=== PATIENT | female | born 1980 | race Caucasian/White ===

== ENCOUNTER 2020-05-08 03:31 | Emergency (ER) | payer OTHER ==
--- NOTE | 2020-05-08 03:53 | EDM.PDOC ---
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 Before she could catch that and ended up falling on top of her causing a crush injury to left hand. The patient has pain in the left hand it is worse with movement and touching it and it is associated with numbness in the digits. The pain sharp and moderately severe Review of systems: As per history of present illness and below otherwise all systems reviewed and negative. Past medical history: As per history of present illness and as reviewed below otherwise noncontributory. Surgical history: As per history of present illness and as reviewed below otherwise noncontributory. Social history: No reported history of drug or alcohol abuse. Family history: As per history of present illness and as reviewed below otherwise noncontributory. Physical exam: Constitutional - well developed, well-nourished and in no acute distress HEENT - normocephalic, no evidence of trauma - external nose and mouth normal - no mass in neck and no JVD - mucosae moist EYES - full EOM, PERRL, no icterus - no evidence of inflammation, injection, or drainage Respiratory - no respiratory distress, equal bilateral expansion Musculoskeletal tenderness of the dorsum of the left hand at the base of the third fourth and fifth metacarpals. Abrasion in the same area. No gross deformity of long bones or joints - no tenderness, swelling or edema Neurologic - Alert and oriented times four - CN II-XII grossly intact - motor sensory and coordination symmetrically normal Psychiatric - appropriate mood and affect with normal thought content Hematologic - No petechiae or purpura - mucosa appropriate color and sclera not pale - normal nail bed color and refill Integument - no rash or evidence of trauma - normal turgor Diagnostics: [] Therapeutics: [] Impression: [] Plan: [] Definitive disposition and diagnosis as appropriate pending reevaluation and review of above. L hand Pain Score (Numeric/FACES): 7 - Related Data Allergies Allergy/AdvReac Type Severity Reaction Status Date / Time No Known Allergies Allergy Verified 05/08/20 04:00 Home Meds: Home Meds Levothyroxine [Synthroid] 0 mcg PO DAILY 04/28/14 [History] Past Medical History - Past Health History Medical/Surgical History: Denies Medical/Surgical History HEENT History: Reports: None Gastrointestinal History: Reports: None Genitourinary History: Reports: None Neurological History: Reports: Other (See Below) Other Neuro History: buldging discs Psychiatric History: Reports: Depression Endocrine/Metabolic History: Reports: Hypothyroidism - Past Surgical History HEENT Surgical History: Reports: Tonsillectomy Female Surgical History: Reports: Tubal Ligation Endocrine Surgical History: Reports: Other (See Below) Other Endocrine Surgeries/Procedures: Multiple thyroid procedures Neurological Surgical History: Reports: Lumbar Spine Other Neurological Surgeries/Procedures: Surgery at L3-4. Microdiscectomy at L4-5 06/29/17 Social & Family History - Family History Family Medical History: Noncontributory ED ROS GENERAL - Review of Systems Review Of Systems: Comprehensive ROS is negative, except as noted in HPI. ED EXAM, GENERAL - Physical Exam Exam: See Below Free Text/Narrative:: Physical exam as in the HPI Course - Vital Signs Text/Narrative:: Previous negative for fracture. Compartment warnings given. Patient discharged in satisfactory condition after neurovascular integrity was verified after splint placement Last Recorded V/S: Last Vital Signs Temp 96.9 F 05/08/20 03:44 Pulse 100 05/08/20 03:44 Resp 17 05/08/20 03:44 BP 131/89 05/08/20 03:44 Pulse Ox 100 05/08/20 03:44 - Orders/Labs/Meds Orders: Active Orders 24 hr Category Date Time Status Splinting [RC] ASDIRECTED Care 05/08/20 04:18 Ordered Hand Comp Min 3V Lt [CR] Stat Exams 05/08/20 03:52 Taken Departure - Departure Time of Disposition: 04:19 Disposition: Home, Self-Care 01 Condition: Good Clinical Impression: Contusion of hand, left - Discharge Information Instructions: Hand Contusion Referrals: Kirit Frye MD [Primary Care Provider] - Additional Instructions: The following information is given to patients seen in the emergency department who are being discharged to home. This information is to outline your options for follow-up care. We provide all patients seen in our emergency department with a follow-up referral. The need for follow-up, as well as the timing and circumstances, are variable depending upon the specifics of your emergency department visit. If you don't have a primary care physician on staff, we will provide you with a referral. We always advise you to contact your personal physician following an emergency department visit to inform them of the circumstance of the visit and for follow-up with them and/or the need for any referrals to a consulting specialist. The emergency department will also refer you to a specialist when appropriate. This referral assures that you have the opportunity for follow-up care with a specialist. All of these measure are taken in an effort to provide you with optimal care, which includes your follow-up. Under all circumstances we always encourage you to contact your private physician who remains a resource for coordinating your care. When calling for follow-up care, please make the office aware that this follow-up is from your recent emergency room visit. If for any reason you are refused follow-up, please contact the [facility] Emergency Department at and asked to speak to the emergency department charge nurse. [facility] [address], [address] [place] [address] Sepsis Event Note (ED) - Focused Exam Vital Signs: Vital Signs Temp Pulse Resp BP Pulse Ox 05/08/20 03:44 96.9 F 100 17 131/89 100 - My Orders Last 24 Hours: My Active Orders 05/08/20 03:52 Hand Comp Min 3V Lt [CR] Stat 05/08/20 04:18 Splinting [RC] ASDIRECTED - Assessment/Plan Last 24 Hours: My Active Orders 05/08/20 03:52 Hand Comp Min 3V Lt [CR] Stat 05/08/20 04:18 Splinting [RC] ASDIRECTED
[2020-05-08 04:00] VITALS: BP 131/89; PULSE 100
--- NOTE | 2020-05-08 04:54 | CR ---
Indication: Pain after trauma Technique: Three views Comparison: None Findings: Bones: Alignment is normal. No fractures or bone lesions. Joint spaces: Unremarkable. Soft tissues: Unremarkable. Dictated by Renzo Das MD @ May 08 2020 4:50AM Signed by Dr. Renzo Das @ May 08 2020 4:53AM
== END 2020-05-08 04:36 | disposition home or self-care (01) ==
LOC: MW.ED 03:31
DX: S60.222A Contusion of left hand, initial encounter (principal); E03.9 Hypothyroidism, unspecified; Z79.899 Other long term (current) drug therapy; W20.8XXA Other cause of strike by thrown, projected or falling object, initial encounter
CPT/HCPCS: 73130-26-LT; 73130-LT; 99282; 99283

== ENCOUNTER 2022-03-14 05:45 | Emergency (ER) | payer OTHER ==
[2022-03-14 07:12] LABS: BLOOD UREA NITROGEN,BUN 12 mg/dL (7.0-18.0); CARBON DIOXIDE,CO2 28.7 mmol/L (21.0-32.0); CHLORIDE,CL 103 mmol/L (98-107); GLUCOSE RANDOM 84 mg/dL (74-106); POTASSIUM,K 3.9 mmol/L (3.5-5.1); SODIUM,NA 137 mmol/L (136-145)
[2022-03-14 07:28] VITALS: BP 128/74; PULSE 88
== END 2022-03-14 07:33 | disposition home or self-care (01) ==
LOC: MW.ED 05:45
DX: E89.0 Postprocedural hypothyroidism (principal); Z79.899 Other long term (current) drug therapy
CPT/HCPCS: 36415; 80053; 83735; 84439; 84443; 84481; 84484; 84703; 85025; 93005; 99284-25

== ENCOUNTER 2023-04-06 00:38 | Emergency (ER) | payer OTHER ==
[2023-04-06] MEDS ORDERED: Ketorolac 30 MG/ML SDV IVPUSH ONE (01:38)
[2023-04-06] MEDS ORDERED: diphenhydrAMINE 50 MG/ML SDV IVPUSH ONE (01:38)
[2023-04-06] MEDS ORDERED: Acetaminophen 325 MG Tab PO ONE (01:38)
[2023-04-06] MEDS ORDERED: Lactated Ringers 1,000 ML IV SCH (01:45)
[2023-04-06 02:10] LABS: BASOPHILS PERCENT AUTO 0.2 % (0.0-1.5); EOSINOPHILS PERCENT AUTO 0.3 % (0.0-7.0); HEMATOCRIT 33.4 % (36.0-46.0); HEMOGLOBIN 10.6 g/dL (12.0-16.0); LYMPHOCYTES ABSOLUTE AUTO 0.4 K/uL (0.6-2.4); LYMPHOCYTES PERCENT AUTO 6.4 % (16.0-40.0); MEAN CORPUSCULAR HEMOGLOBIN 25.4 pg (27.0-32.0); MEAN CORPUSCULAR HGB CONC 31.7 g/dL (31.0-37.0); MEAN CORPUSCULAR VOLUME 79.9 fL (80.0-98.0); MONOCYTES ABSOLUTE AUTO 0.3 K/uL (0.0-0.8); MONOCYTES PERCENT AUTO 4.6 % (0.0-15.0); NEUTROPHILS ABSOLUTE AUTO 5.4 K/uL (1.4-5.7); NEUTROPHILS PERCENT AUTO 88.5 % (48.0-80.0); NRBC ABSOLUTE 0 K/uL; PLATELET COUNT,PLT 126 K/uL (150-400); RED BLOOD CELL COUNT 4.18 M/uL (4.30-5.90); WHITE BLOOD CELL COUNT,WBC 6.08 K/uL (4.0-11.0)
[2023-04-06 02:33] LABS: CREATININE 0.8 mg/dL (0.6-1.0); POTASSIUM,K 4.1 mmol/L (3.5-5.1)
[2023-04-06 02:34] LABS: ALBUMIN 3.2 g/dL (3.4-5.0); BILIRUBIN TOTAL 0.5 mg/dL (0.2-1.0); CALCIUM 9.1 mg/dL (8.5-10.1); EST CRCL DRUG DOSING (CG) 80.75 mL/min; PROTEIN TOTAL,TP 6.5 g/dL (6.4-8.2)
[2023-04-06 02:41] LABS: BILIRUBIN,URINE NEGATIVE (NEGATIVE); COLOR,URINE YELLOW; GLUCOSE,URINE NEGATIVE (NEGATIVE); KETONES,URINE NEGATIVE (NEGATIVE); LEUKOCYTE ESTERASE,URINE NEGATIVE (NEGATIVE); NITRITE,URINE POSITIVE (NEGATIVE); OCCULT BLOOD,URINE NEGATIVE (NEGATIVE); PROTEIN,URINE NEGATIVE (NEGATIVE); UROBILINOGEN,URINE 0.2 EU/dL (<2.0)
[2023-04-06 02:52] LABS: APPEARANCE,URINE HAZY
[2023-04-06 02:58] LABS: EPITHELIAL CELLS,URINE FEW (NONE-FEW); RBC,URINE 0-2 (0-2/HPF); WBC,URINE 0-2 (0-5/HPF)
[2023-04-06 02:59] LABS: BACTERIA,URINE 4+ (NEGATIVE); MUCUS,URINE LIGHT (NONE-MOD)
[2023-04-06] MEDS ORDERED: cefTRIAXone 1 GM in Sodium Chloride 0.9% 50 ML IV ONE (03:13)
[2023-04-06 04:42] VITALS: BP 115/73; PULSE 107
== END 2023-04-06 04:42 | disposition home or self-care (01) ==
LOC: MW.ED 00:38
DX: N12 Tubulo-interstitial nephritis, not specified as acute or chronic (principal); E03.9 Hypothyroidism, unspecified; Z79.899 Other long term (current) drug therapy; Z20.822 Contact with and (suspected) exposure to COVID-19
CPT/HCPCS: 36415; 71046; 80053; 81001; 83690; 85025; 86308; 87040; 87086; 87088; 87186; 87635; 96361; 96365; 96375; 99284; A9270; J0696; J1200; J1885; J3490; J7120; U0002

== ENCOUNTER 2023-08-18 20:11 | Emergency (ER) | payer OTHER ==
[2023-08-18 20:55] LABS: BASOPHILS ABSOLUTE AUTO 0.05 K/uL (0.00-0.20); EOSINOPHILS ABSOLUTE AUTO 0.18 K/uL (0.00-0.45); EOSINOPHILS PERCENT AUTO 3.7 % (0.0-6.0); HEMATOCRIT 36.5 % (37.0-47.0); HEMOGLOBIN 11.8 g/dL (12.0-16.0); IMMATURE GRAN ABSOLUTE AUTO 0.08 K/uL (0.00-0.05); IMMATURE GRAN PERCENT AUTO 1.6 % (0.0-0.4); LYMPHOCYTES ABSOLUTE AUTO 1.31 K/uL (1.00-4.80); LYMPHOCYTES PERCENT AUTO 26.8 % (24.0-44.0); MEAN CORPUSCULAR HEMOGLOBIN 26.5 pg (28.0-32.0); MEAN CORPUSCULAR HGB CONC 32.3 g/dL (32.0-36.0); MEAN CORPUSCULAR VOLUME 81.8 fL (83.0-99.0); MEAN PLATELET VOLUME 8.6 fL (9.4-12.3); MONOCYTES ABSOLUTE AUTO 0.76 K/uL (0.00-0.80); MONOCYTES PERCENT AUTO 15.6 % (0.0-8.0); NEUTROPHILS PERCENT AUTO 51.3 % (41.0-71.0); PLATELET COUNT,PLT 214 K/uL (150-400); RED BLOOD CELL COUNT 4.46 M/uL (4.10-5.30); WHITE BLOOD CELL COUNT,WBC 4.88 K/uL (3.9-11.3)
[2023-08-18 21:27] LABS: CALCIUM 9.2 mg/dL (8.5-10.1); CREATININE 0.9 mg/dL (0.6-1.0); EST CRCL DRUG DOSING (CG) 71.03 mL/min; POTASSIUM,K 3.9 mmol/L (3.5-5.1)
[2023-08-18 21:58] VITALS: BP 112/64; PULSE 81
== END 2023-08-18 21:53 | disposition home or self-care (01) ==
LOC: MW.ED 20:11
DX: R21 Rash and other nonspecific skin eruption (principal)
CPT/HCPCS: 36415; 80048; 85025; 99282; 99283

== ENCOUNTER 2024-10-30 14:11 | Inpatient (IN) | payer OTHER ==
[2024-10-30] MEDS ORDERED: VANCOmycin 1.5 GM in Sodium Chloride 0.9% 250 ML IV ONE (16:30)
[2024-10-30 16:55] LABS: BASOPHILS ABSOLUTE AUTO 0.04 K/uL (0.00-0.20); BASOPHILS PERCENT AUTO 0.3 % (0.0-1.0); EOSINOPHILS ABSOLUTE AUTO 0.06 K/uL (0.00-0.45); EOSINOPHILS PERCENT AUTO 0.4 % (0.0-6.0); HEMATOCRIT 37.1 % (37.0-47.0); HEMOGLOBIN 12.4 g/dL (12.0-16.0); IMMATURE GRAN ABSOLUTE AUTO 0.07 K/uL (0.00-0.05); IMMATURE GRAN PERCENT AUTO 0.5 % (0.0-0.4); MEAN CORPUSCULAR HEMOGLOBIN 30.5 pg (28.0-32.0); MEAN CORPUSCULAR HGB CONC 33.4 g/dL (32.0-36.0); MEAN CORPUSCULAR VOLUME 91.2 fL (83.0-99.0); MONOCYTES ABSOLUTE AUTO 1.15 K/uL (0.00-0.80); MONOCYTES PERCENT AUTO 8.4 % (0.0-8.0); NEUTROPHILS PERCENT AUTO 76.4 % (41.0-71.0); PLATELET COUNT,PLT 209 K/uL (150-400); RED BLOOD CELL COUNT 4.07 M/uL (4.10-5.30); WHITE BLOOD CELL COUNT,WBC 13.62 K/uL (3.9-11.3)
[2024-10-30] MEDS: VANCOmycin 1.5 GM in Sodium Chloride 0.9% 250 ML IV ONE (17:04)
[2024-10-30] MEDS: Sodium Chloride 0.9% 1,000 ML IV STA (17:05)
[2024-10-30] MEDS: ceFAZolin 2 GM in Sodium Chloride 0.9% 50 ML IV STA (17:05)
[2024-10-30] MEDS: Acetaminophen 500 MG Tab PO STA (17:05)
[2024-10-30] MEDS: Morphine 4 MG/ML Syringe IVPUSH STA (17:15)
[2024-10-30] MEDS: Ondansetron 4 MG/2 ML SDV IVPUSH STA (17:15)
[2024-10-30 17:20] LABS: A/G RATIO 0.8 (0.9-1.6); ALBUMIN 3.1 g/dL (3.4-5.0); BILIRUBIN TOTAL 0.5 mg/dL (0.2-1.0); C-REACTIVE PROTEIN 5.14 mg/dL (<0.3); CALCIUM 9.5 mg/dL (8.5-10.1); CARBON DIOXIDE,CO2 30.8 mmol/L (21.0-32.0); CREATININE 0.9 mg/dL (0.6-1.0); EST CRCL DRUG DOSING (CG) 70.28 mL/min; POTASSIUM,K 4.7 mmol/L (3.5-5.1); PROTEIN TOTAL,TP 7.2 g/dL (6.4-8.2)
[2024-10-30 17:24] LABS: LACTIC ACID 1.2 mmol/L (0.4-2.0)
[2024-10-30] MEDS: Iopamidol 755 Mg/ML 100 ML Bottle IVPUSH STA (19:25)
[2024-10-30] MEDS: Metoclopramide 10 MG/2 ML SDV IVPUSH STA (20:05)
[2024-10-30] MEDS: Magnesium Sulfate/Water Premix 2 GM in Premix Bag 1 BAG IV STA (20:08)
[2024-10-30] MEDS: Ketorolac 30 MG/ML SDV IVPUSH STA (20:08)
[2024-10-30] MEDS: diphenhydrAMINE 50 MG/ML SDV IVPUSH STA (20:09)
[2024-10-30] MEDS ORDERED: Polyethylene Glycol 3350 Powder 17 GM Packet PO PRN (21:07)
[2024-10-30] MEDS ORDERED: Ondansetron 4 MG/2 ML SDV IVPUSH PRN (21:07)
[2024-10-30] MEDS ORDERED: Acetaminophen 650 MG Supp RECTAL PRN (21:07)
[2024-10-30] MEDS ORDERED: Naloxone 0.4 MG/ML SDV IVPUSH PRN (21:13)
[2024-10-30] MEDS ORDERED: ceFAZolin 2 GM in Sodium Chloride 0.9% 50 ML IV SCH (21:15)
[2024-10-31] MEDS: ceFAZolin 2 GM in Sodium Chloride 0.9% 50 ML IV SCH (01:24)
[2024-10-31] MEDS: Morphine 2 MG/ML SYRINGE IVPUSH PRN (02:31)
[2024-10-31] MEDS: VANCOmycin 1 GM in Sodium Chloride 0.9% 250 ML IV SCH (04:00)
[2024-10-31] MEDS: Acetaminophen 650 MG Supp RECTAL PRN (04:00)
[2024-10-31 06:00] LABS: BASOPHILS ABSOLUTE AUTO 0.02 K/uL (0.00-0.20); BASOPHILS PERCENT AUTO 0.2 % (0.0-1.0); EOSINOPHILS ABSOLUTE AUTO 0.06 K/uL (0.00-0.45); EOSINOPHILS PERCENT AUTO 0.5 % (0.0-6.0); HEMATOCRIT 31.5 % (37.0-47.0); HEMOGLOBIN 10.1 g/dL (12.0-16.0); IMMATURE GRAN ABSOLUTE AUTO 0.06 K/uL (0.00-0.05); IMMATURE GRAN PERCENT AUTO 0.5 % (0.0-0.4); LYMPHOCYTES ABSOLUTE AUTO 1.49 K/uL (1.00-4.80); LYMPHOCYTES PERCENT AUTO 13.5 % (24.0-44.0); MEAN CORPUSCULAR HEMOGLOBIN 29.5 pg (28.0-32.0); MEAN CORPUSCULAR HGB CONC 32.1 g/dL (32.0-36.0); MEAN CORPUSCULAR VOLUME 92.1 fL (83.0-99.0); MEAN PLATELET VOLUME 8.4 fL (9.4-12.3); MONOCYTES ABSOLUTE AUTO 0.82 K/uL (0.00-0.80); MONOCYTES PERCENT AUTO 7.4 % (0.0-8.0); NEUTROPHILS ABSOLUTE AUTO 8.62 K/uL (1.80-7.70); NEUTROPHILS PERCENT AUTO 77.9 % (41.0-71.0); PLATELET COUNT,PLT 206 K/uL (150-400); RED BLOOD CELL COUNT 3.42 M/uL (4.10-5.30); WHITE BLOOD CELL COUNT,WBC 11.07 K/uL (3.9-11.3)
[2024-10-31 06:33] LABS: C-REACTIVE PROTEIN 7.91 mg/dL (<0.3); CALCIUM 8.2 mg/dL (8.5-10.1); CARBON DIOXIDE,CO2 29.1 mmol/L (21.0-32.0); CREATININE 0.9 mg/dL (0.6-1.0); EST CRCL DRUG DOSING (CG) 70.28 mL/min; POTASSIUM,K 4.4 mmol/L (3.5-5.1)
[2024-10-31] MEDS ORDERED: Albuterol 0.083% 2.5 MG/3 ML Neb Soln NEB PRN (07:48)
[2024-10-31] MEDS ORDERED: fentaNYL 50 MCG/ML SDV IVPUSH PRN (07:48)
[2024-10-31] MEDS ORDERED: Phenylephrine HCl In 0.9% NaCl 1 MG/10 ML Syringe IVPUSH PRN (07:48)
[2024-10-31] MEDS ORDERED: Morphine 2 MG/ML SYRINGE IVPUSH PRN (07:48)
[2024-10-31] MEDS ORDERED: Metoclopramide 10 MG/2 ML SDV IVPUSH PRN (07:48)
[2024-10-31] MEDS ORDERED: Ondansetron 4 MG/2 ML SDV IVPUSH PRN (07:48)
[2024-10-31] MEDS ORDERED: Naloxone 0.4 MG/ML SDV IVPUSH PRN (07:48)
[2024-10-31] MEDS ORDERED: HYDROmorphone 1 MG/ML Syringe IVPUSH PRN (07:48)
[2024-10-31] MEDS: Ketorolac 30 MG/ML SDV IVPUSH PRN (09:32)
[2024-10-31] MEDS ORDERED: fentaNYL 100 MCG/2 ML SDV ONE ×3 (10:14→11:38)
[2024-10-31] MEDS ORDERED: Propofol 200 MG/20 ML SDV ONE (10:14)
[2024-10-31] MEDS ORDERED: Metoclopramide 10 MG/2 ML SDV ONE (10:15)
[2024-10-31] MEDS ORDERED: Ondansetron 4 MG/2 ML SDV ONE ×2 (10:15→11:43)
[2024-10-31] MEDS ORDERED: Lidocaine 1% 5 ML VIAL ONE (10:16)
[2024-10-31] MEDS ORDERED: propofoL 500 MG/50 ML 50 ML ONE (10:40)
[2024-10-31] MEDS ORDERED: Bupivacaine 0.5% 30 ML SDV ONE (10:44)
[2024-10-31] MEDS ORDERED: HYDROmorphone 1 MG/ML Syringe ONE (11:43)
[2024-10-31] MEDS: Acetaminophen 325 MG Tab PO PRN (18:47)
[2024-10-31] MEDS: Enoxaparin 40 MG/0.4 ML Syringe SUBCUT SCH (20:09)
[2024-10-31] MEDS: Nicotine 21 MG/24 Hr Patch TRDERM PRN (20:09)
[2024-10-31] MEDS: Melatonin 3 MG Tab PO PRN (23:46)
[2024-11-01 06:27] LABS: BASOPHILS ABSOLUTE AUTO 0.03 K/uL (0.00-0.20); BASOPHILS PERCENT AUTO 0.5 % (0.0-1.0); EOSINOPHILS ABSOLUTE AUTO 0.09 K/uL (0.00-0.45); EOSINOPHILS PERCENT AUTO 1.5 % (0.0-6.0); HEMATOCRIT 29.3 % (37.0-47.0); HEMOGLOBIN 9.7 g/dL (12.0-16.0); IMMATURE GRAN ABSOLUTE AUTO 0.03 K/uL (0.00-0.05); IMMATURE GRAN PERCENT AUTO 0.5 % (0.0-0.4); LYMPHOCYTES ABSOLUTE AUTO 1.28 K/uL (1.00-4.80); LYMPHOCYTES PERCENT AUTO 21.7 % (24.0-44.0); MEAN CORPUSCULAR HEMOGLOBIN 30.2 pg (28.0-32.0); MEAN CORPUSCULAR HGB CONC 33.1 g/dL (32.0-36.0); MEAN CORPUSCULAR VOLUME 91.3 fL (83.0-99.0); MEAN PLATELET VOLUME 8.5 fL (9.4-12.3); MONOCYTES ABSOLUTE AUTO 0.53 K/uL (0.00-0.80); NEUTROPHILS ABSOLUTE AUTO 3.93 K/uL (1.80-7.70); NEUTROPHILS PERCENT AUTO 66.8 % (41.0-71.0); PLATELET COUNT,PLT 162 K/uL (150-400); RED BLOOD CELL COUNT 3.21 M/uL (4.10-5.30); WHITE BLOOD CELL COUNT,WBC 5.89 K/uL (3.9-11.3)
[2024-11-01] MEDS: VANCOmycin 1.5 GM in Sodium Chloride 0.9% 250 ML IV SCH (06:32)
[2024-11-01 06:49] LABS: CALCIUM 8.3 mg/dL (8.5-10.1); CARBON DIOXIDE,CO2 28.3 mmol/L (21.0-32.0); CREATININE 0.7 mg/dL (0.6-1.0); EST CRCL DRUG DOSING (CG) 90.36 mL/min; MAGNESIUM 2.2 mg/dL (1.8-2.4); POTASSIUM,K 4.3 mmol/L (3.5-5.1)
[2024-11-01 12:48] VITALS: BP 107/66; PULSE 94
[2024-11-01] MEDS ORDERED: VANCOmycin 1.5 GM in Sodium Chloride 0.9% 250 ML IV SCH (19:00)
== END 2024-11-01 12:48 | disposition home or self-care (01) | DRG 502 ==
LOC: MW.ED 14:11 → MW.MS 20:30
PROVIDERS: ADMIT Family Medicine; ATTEND Family Medicine
PROC: 0MBN0ZZ Excision of Right Knee Bursa and Ligament, Open Approach (ICD-10-PCS; principal; 2024-10-31 11:45)
DX: M70.41 Prepatellar bursitis, right knee (principal); F15.90 Other stimulant use, unspecified, uncomplicated; F17.210 Nicotine dependence, cigarettes, uncomplicated; F12.90 Cannabis use, unspecified, uncomplicated; E03.9 Hypothyroidism, unspecified; Z79.899 Other long term (current) drug therapy; Z90.89 Acquired absence of other organs; Z98.51 Tubal ligation status; Z98.890 Other specified postprocedural states
CPT/HCPCS: 01250; 36415; 73562-26-RT; 73562-RT; 73701-26-RT; 73701-RT; 80048; 80053; 80202; 82947; 83605; 83735; 85025; 85652; 86140; 87040; 87070; 87075; 87205; 96365; 96367; 96375; 97116-GP; 97161-GP; 99222; 99232; 99239; 99284; 99285-25; A9270-GY; J0131; J0665; J0690; J1171; J1200; J1650; J1885; J2270; J2405; J2704; J2765; J3010; J3371; J3475; J3490; J7030; J7050; Q9967

== ENCOUNTER 2024-11-28 09:36 | Day surgery (SDC) | payer OTHER ==
[~2024-11-28 09:36] MED LIST: Albuterol 0.083% 2.5 MG/3 ML Neb Soln NEB PRN; HYDROmorphone 1 MG/ML Syringe IVPUSH PRN; Metoclopramide 10 MG/2 ML SDV IVPUSH PRN; Morphine 2 MG/ML SYRINGE IVPUSH PRN; Naloxone 0.4 MG/ML SDV IVPUSH PRN; Ondansetron 4 MG/2 ML SDV IVPUSH PRN; Phenylephrine HCl In 0.9% NaCl 1 MG/10 ML Syringe IVPUSH PRN
[2024-11-28] MEDS: Scopalamine 1mg/3day Transdermal Patch TRDERM ONE (10:00)
[2024-11-28] MEDS: Lactated Ringers 1,000 ML IV SCH (10:00)
[2024-11-28] MEDS ORDERED: propofoL 500 MG/50 ML 50 ML ONE (10:57)
[2024-11-28] MEDS ORDERED: dexmedeTOMIDine HCl 200 MCG/2 ML SDV ONE (11:01)
[2024-11-28] MEDS ORDERED: fentaNYL 100 MCG/2 ML SDV ONE (11:02)
[2024-11-28] MEDS ORDERED: Ketamine HCL/NACL, ISO-OSM 50 MG/5 ML Syringe ONE (11:28)
[2024-11-28] MEDS ORDERED: Ketorolac 30 MG/ML SDV ONE (11:30)
[2024-11-28] MEDS ORDERED: ceFAZolin 2 GM in Sodium Chloride 0.9% 50 ML IV ONE (11:30)
[2024-11-28] MEDS ORDERED: ceFAZolin 2 GM Vial ONE (11:44)
[2024-11-28] MEDS ORDERED: Bupivacaine 0.25% 30 ML SDV ONE (11:57)
[2024-11-28] MEDS: fentaNYL 50 MCG/ML SDV IVPUSH PRN (13:25)
[2024-11-28 14:23] VITALS: BP 111/72; PULSE 64
== END 2024-11-28 13:48 | disposition home or self-care (01) ==
LOC: MW.SDS 09:36
PROVIDERS: ATTEND Orthopaedic Surgery
DX: M71.161 Other infective bursitis, right knee (principal); E03.9 Hypothyroidism, unspecified; F17.210 Nicotine dependence, cigarettes, uncomplicated; F17.290 Nicotine dependence, other tobacco product, uncomplicated; Z79.890 Hormone replacement therapy; Z79.899 Other long term (current) drug therapy
CPT/HCPCS: 11044; 36415; 84703; 87070; 87075; 87205; A9270; J0131; J0665; J0690; J1885; J2405; J2704; J3010; J7120; 01320; J3490